=== PATIENT | male | born 1995 | race Caucasian/White ===

== ENCOUNTER 2017-07-22 18:55 | Emergency (ER) | payer BC ==
[~2017-07-22] VITALS: Ht 177.8 cm; Wt 81.6 kg
--- NOTE | 2017-07-22 18:58 | ED.ADGEN ---
Adult General Chief Complaint Chief Complaint " I think I may have spider bite.. I ve squeezed it... and now it all red..." HPI HPI Patient is a 22 year old male who presents with above hx and complaints with an area of cellulitis lt thigh with central 1 x 1 cm abscess . Pus is draining from a central dark necrotic area. Some femoral adenopathy noted. Patient denies any history of travel or specific ill contacts. Has not had a previous episode of MRSA. Patient has not seen any spiders. Location is somewhat questionable be a spider bite. Patient normally healthy. Patient does shave his skin and groin area. Has a few other areas of folliculitis. Patient did not know his last tetanus, but thinks it been over 5 yrs. Review of Systems Review of Systems Constitutional: Denies fever or chills [] Eyes: Denies change in visual acuity, redness, or eye pain [] HENT: Denies nasal congestion or sore throat [] Respiratory: Denies cough or shortness of breath [] Cardiovascular: No additional information not addressed in HPI [] GI: Denies abdominal pain, nausea, vomiting, bloody stools or diarrhea [] : Denies dysuria or hematuria [] Musculoskeletal: Denies back pain or joint pain [] Integument: Complaints of cellulitis and abscess Neurologic: Denies headache, focal weakness or sensory changes [] Endocrine: Denies polyuria or polydipsia [] All other systems were reviewed and found to be within normal limits, except as documented in this note. Family History Family History Noncontributory Current Medications Current Medications Current Medications Medications (Trade) Dose Ordered Sig/Teri Start Time Stop Time Status Last Admin Dose Admin Ceftriaxone Sodium (Rocephin Im) 1 gm 1X ONCE 07/22/17 19:45 07/22/17 19:46 DC 07/22/17 19:47 1 GM Diphtheria/ Tetanus/Acell Pertussis (Boostrix) 0.5 ml ONCE ONCE 07/22/17 19:45 07/22/17 19:46 DC 07/22/17 19:48 0.5 ML Ketorolac Tromethamine (Toradol) 60 mg 1X ONCE 07/22/17 19:45 07/22/17 19:46 DC 07/22/17 19:47 60 MG Trimethoprim/ Sulfamethoxazole (Bactrim Ds) 1 tab 1X ONCE 07/22/17 19:45 07/22/17 19:46 DC 07/22/17 19:46 1 TAB Allergies Allergies Allergies Coded Allergies Type Severity Reaction Last Updated Verified No Known Drug Allergies 07/22/17 No Physical Exam Physical Exam Constitutional: Well developed, well nourished, moderately acute distress, non- toxic appearance. [] HENT: Normocephalic, atraumatic, bilateral external ears normal, oropharynx moist, no oral exudates, nose normal. [] Eyes: PERRLA, EOMI, conjunctiva normal, no discharge. [] Neck: Normal range of motion, no tenderness, supple, no stridor. [] Cardiovascular:Heart rate regular rhythm, no murmur [] Lungs & Thorax: Bilateral breath sounds few scattered wheezes on auscultation [ ] Abdomen: Bowel sounds normal, soft, no tenderness, no masses, no pulsatile masses. [] Skin: Warm, dry, no erythema, no rash. Abscess as per history of present illness Back: No tenderness, no CVA tenderness. [] Extremities: No tenderness, no cyanosis, no clubbing, ROM intact, no edema. [] Neurologic: Alert and oriented X 3, normal motor function, normal sensory function, no focal deficits noted. [] Psychologic: Affect normal, judgement normal, mood normal. [] Current Patient Data Vital Signs Vital Signs Date Time Temp Pulse Resp B/P (MAP) Pulse Ox O2 Delivery O2 Flow Rate FiO2 07/22/17 19:00 98.7 100 20 96 Room Air EKG EKG [] Radiology/Procedures Radiology/Procedures [] Course & Med Decision Making Course & Med Decision Making Pertinent Labs and Imaging studies reviewed. (See chart for detail Procedure note- incision and drainage-- cellulitis and abscess area left groin prepped with Betadine. One stick with 11 blade. Drainage approximately 2 mL to 3 mL of pus. Dressing applied. Patient keep area clean and dry. Patient apply Polysporin 4 times a day. Patient take Bactrim DS twice a day. Patient follow-up primary care. Patient return if any concerns. Patient's tetanus was updated. [] Final Impression Final Impression 1. Cellulitis and Abscess[] Problems: Dragon Disclaimer Dragon Disclaimer This electronic medical record was generated, in whole or in part, using a voice recognition dictation system. GUERLINE MCCABE MD Jul 22, 2017 18:58
[2017-07-22 19:00] VITALS: BP 145/85
[2017-07-22] MEDS ORDERED: SULF1TAB24 PO (19:32)
[2017-07-22] MEDS ORDERED: DIPHTH,PERTUSS(ACELL),TET TOX 0.5 ML DISP.SYRIN. VAX IM ONE (19:45)
[2017-07-22] MEDS ORDERED: KETOROLAC 60 MG/2 ML VIAL. IM ONE (19:45)
[2017-07-22] MEDS ORDERED: SMZ/TMP 800/160MG TABLET. PO ONE (19:45)
[2017-07-22] MEDS ORDERED: cefTRIAXone IM 1 GM VIAL IM ONE (19:45)
== END 2017-07-22 20:11 | disposition home or self-care (01) ==
LOC: ER 18:55
DX: L03.116 Cellulitis of left lower limb (principal)
CPT/HCPCS: 10060; 90471; 90715; 96372; 99284; J0696; J1885

== ENCOUNTER 2018-07-15 13:04 | Emergency (ER) | payer BC ==
[~2018-07-15] VITALS: Ht 182.9 cm; Wt 81.6 kg
[~2018-07-15 13:04] MED LIST: SULF1TAB24 PO
[2018-07-15 13:38] VITALS: BP 149/71
[2018-07-15] MEDS ORDERED: IBUPROFEN 800 MG TABLET. PO ONE (13:45)
[2018-07-15] MEDS ORDERED: IBUPROFEN 400 MG TABLET. PO ONE (13:45)
[2018-07-15 14:21] LABS: INFLUENZA A PATIENT POSITIVE (NEGATIVE); INFLUENZA B PATIENT NEGATIVE (NEGATIVE)
[2018-07-15] MEDS ORDERED: IBUP800T19 PO (14:35)
[2018-07-15] MEDS ORDERED: HYDR115S2 PO (14:35)
[2018-07-15] MEDS ORDERED: OSEL75CA PO (14:35)
--- NOTE | 2018-07-15 14:36 | PHYS DOC ---
Past History Past Medical History: Depression, Other Past Surgical History: No Surgical History Alcohol Use: None Drug Use: None Adult General Chief Complaint Chief Complaint: HEADACHE HPI HPI Patient is a 23 year old male who presents with any, headache and fever and cough. Patient complaining of URI symptoms for less than 48 hours with nonproductive cough, shortness of breath and chest soreness with episodes of cough, subjective fever, chills, nausea, myalgia, headache, nasal congestion. Patient states he didn't take any medication except for some nyquil. Review of Systems Review of Systems Constitutional: Reports fever and chills Eyes: Denies change in visual acuity, redness, or eye pain [] HENT: Reports nasal congestion , sore throat Respiratory: Reports cough and shortness of breath Cardiovascular: No additional information not addressed in HPI [] GI: Denies abdominal pain, nausea, vomiting, bloody stools or diarrhea [] : Denies dysuria or hematuria [] Musculoskeletal: Denies back pain or joint pain [] Integument: Denies rash or skin lesions [] Neurologic: Reports headache, denies focal weakness or sensory changes [] Endocrine: Denies polyuria or polydipsia [] All other systems were reviewed and found to be within normal limits, except as documented in this note. Current Medications Current Medications Current Medications Medications (Trade) Dose Ordered Sig/Teri Start Time Stop Time Status Last Admin Dose Admin Ibuprofen (Motrin) 800 mg 1X ONCE 07/15/18 13:45 07/15/18 13:46 DC 07/15/18 14:00 800 MG Allergies Allergies Allergies Coded Allergies Type Severity Reaction Last Updated Verified No Known Drug Allergies 07/22/17 No Physical Exam Physical Exam Constitutional: Well developed, well nourished, mild distress, non-toxic appearance, temperature 103. [] HENT: Normocephalic, atraumatic, bilateral external ears normal, pharyngeal erythema, oropharynx moist, no oral exudates, nose normal. [] Eyes: PERRLA, EOMI, conjunctiva normal, no discharge. [] Neck: Normal range of motion, no tenderness, supple, no stridor, no meningeal sign. [] Cardiovascular: Tachycardia, no murmur [] Lungs & Thorax: Bilateral breath sounds clear to auscultation [] Abdomen: Bowel sounds normal, soft, no tenderness, no masses, no pulsatile masses. [] Skin: Warm, dry, no erythema, no rash. [] Back: No tenderness, no CVA tenderness. [] Extremities: No tenderness, no cyanosis, no clubbing, ROM intact, no edema. [] Neurologic: Alert and oriented X 3, normal motor function, normal sensory function, no focal deficits noted. [] Psychologic: Affect normal, judgement normal, mood normal. [] Current Patient Data Vital Signs Vital Signs Date Time Temp Pulse Resp B/P (MAP) Pulse Ox O2 Delivery O2 Flow Rate FiO2 07/15/18 13:38 103.0 111 20 96 Room Air Lab Results Laboratory Tests Test 07/15/18 13:38 Influenza Type A (Rapid) Positive (NEGATIVE) Influenza Type B (Rapid) Negative (NEGATIVE) Group A Streptococcus Rapid Negative (NEGATIVE) EKG EKG [] Radiology/Procedures Radiology/Procedures [] Course & Med Decision Making Course & Med Decision Making Pertinent Labs reviewed. (See chart for details) discharge: I've spoken with the patient and/or caregivers. I've explained the patient's condition, diagnosis and treatment plan based on information available to me at this time. I've answered the patient's and/or caregivers questions and addressed any concerns. The patient and/or caregivers have a good understanding the patient's diagnosis, condition and treatment plan as can be expected at this point. Vital signs have been stabilized. The patient's condition is stable for discharge from the emergency department. The patient will pursue further outpatient evaluation with her primary care provider or other designated consulting physician as outlined in the discharge instructions. Patient and/or caregivers are agreeable to this plan of care and follow-up instructions have been explained in detail. The patient and/or caregivers have received these instructions in written format and expressed understanding of these discharge instructions. The patient and her caregivers are aware that if any significant change in condition or worsening of symptoms should prompt him to immediately return to this of the closest emergency department. If an emergent department is not readily available I would encourage him to call 911. [place] Disclaimer [place] Disclaimer This electronic medical record was generated, in whole or in part, using a voice recognition dictation system. Departure Departure: Impression: Primary Impression: Influenza A Additional Impression: Fever Disposition: HOME, SELF-CARE (at 1433) Condition: IMPROVED Referrals: PCP,VU (PCP) Patient Instructions: Fever, Adult, Haemophilus influenzae type b Conjugate Vaccine injection Additional Instructions: Drink plenty of liquids Follow-up with your primary care physician in 3-5 days Return to ER if not getting better Take alternate Tylenol and ibuprofen as needed for fever and pain Scripts Oseltamivir Phosphate (TAMIFLU) 75 Mg Capsule 1 CAP PO BID for flu, #10 CAP Prov: ABDULLAHI GOMEZ MD 07/15/18 Hydrocodone/Chlorphen P-Stirex (Tussionex Pennkinetic Susp) 115 Ml Chloe.er.[id number] 5 ML PO BID for cough and congestion, #60 ML Prov: ABDULLAHI GOMEZ MD 07/15/18 Ibuprofen (IBUPROFEN) 800 Mg Tablet 1 TAB PO TID for pain, #30 TAB Prov: ABDULLAHI GOMEZ MD 07/15/18 Problem Qualifiers Additional Impression: Fever Fever type: unspecified Qualified Codes: R50.9 - Fever, unspecified ABDULLAHI GOMEZ MD Jul 15, 2018 14:36
[2018-07-15] MEDS ORDERED: KETOROLAC 30 MG/ML VIAL. IV ONE (15:00)
== END 2018-07-15 14:48 | disposition home or self-care (01) ==
LOC: ER 13:04
DX: J10.1 Influenza due to other identified influenza virus with other respiratory manifestations (principal); F32.9 Major depressive disorder, single episode, unspecified
CPT/HCPCS: 87070; 87804; 87880; 99283